=== PATIENT | female | born 1990 | race Hispanic/Latino ===

== ENCOUNTER 2025-01-24 20:01 | Emergency (ER) | payer BC ==
[~2025-01-24] VITALS: Ht 152.4 cm; Wt 83.9 kg
[2025-01-24] MEDS ORDERED: ACETAMINOPHEN 325 MG TAB ONE (20:27)
[2025-01-24] MEDS ORDERED: IBUPROFEN 600 MG TAB ONE (20:27)
[2025-01-24] MEDS: ACETAMINOPHEN 325 MG TAB PO ONE (20:33)
[2025-01-24] MEDS: PREDNISONE 20 MG TAB PO STA (20:33)
[2025-01-24] MEDS: IBUPROFEN 600 MG TAB PO STA (20:34)
[2025-01-24 20:49] VITALS: PULSE 102; RESP 19; O2SAT 97
[2025-01-24] MEDS: ALBUTEROL/IPRATROPIUM 3 ML NEB NEB STA (20:51)
[2025-01-24 21:01] LABS: STREPTOCOCCUS GRP A ANTIGEN NEGATIVE (NEGATIVE)
[2025-01-24 21:05] LABS: CORONAVIRUS COVID-19 AG NEGATIVE (NEGATIVE); INFLUENZA A AG NEGATIVE (NEGATIVE); INFLUENZA B AG NEGATIVE (NEGATIVE)
[2025-01-24] MEDS ORDERED: PREDNISONE20 MG PO (22:10)
[2025-01-24] MEDS ORDERED: AZITHROMYCIN250 MG PO (22:10)
[2025-01-24] MEDS ORDERED: VENTOLIN HFA18 GM INH (22:10)
[2025-01-24 22:22] VITALS: PULSE 92; RESP 19; TEMP 99.4
[2025-01-24 22:27] VITALS: BP 123/78; PULSE 104; RESP 20; O2SAT 98
== END 2025-01-24 22:30 | disposition home or self-care (01) ==
LOC: ER 20:26
DX: R50.9 Fever, unspecified (principal); J06.9 Acute upper respiratory infection, unspecified; R05.9 Cough, unspecified; J45.909 Unspecified asthma, uncomplicated; R53.81 Other malaise; Z11.52 Encounter for screening for COVID-19
CPT/HCPCS: 71046; 83518; 87070; 87428; 94640; 94799; 99283; J7512